=== PATIENT | male | born 1940 | race African-American/Black ===

== ENCOUNTER 2018-04-27 11:43 | Emergency (ER) | payer MEDICARE, BC ==
[2018-04-27] MEDS ORDERED: LISINOPRIL 5 MG TABLET PO ONE (12:12)
[2018-04-27] MEDS ORDERED: ASPIRIN 81 MG TABLET, CHEWABLE PO ONE (12:12)
--- NOTE | 2018-04-27 12:21 | ER Document Report ---
ED General - General Chief Complaint: Chest Pain Stated Complaint: CHEST PAIN Time Seen by Provider: 04/27/18 12:01 Mode of Arrival: Ambulatory Information source: Patient, [facility] Records Notes: 77-year-old male with coronary artery disease (with defibrillator), hypertension , hyperlipidemia, COPD presents via private vehicle from home with complaint of chest pain. Patient states that 3 hours prior to arrival he was watching TV when he experienced a sharp pain in the center of his chest. He states that it initially lasted approximately 15 minutes and then resolved. Patient is currently chest pain-free at this time. Patient complains of 3 weeks of a nonproductive cough, lightheadedness. Currently he says that he has not felt lightheaded for several days. Patient has not taken his blood pressure medications at this time. Patient denies headache, nausea, vomiting, diaphoresis, back pain, abdominal pain, dysuria, hematuria, constipation. Patient denies firing of his defibrillator. TRAVEL OUTSIDE OF THE [place] IN LAST 30 DAYS: No - HPI Onset: This morning Onset/Duration: Sudden, Gone Quality of pain: Sharp Associated symptoms: Chest pain, Nonproductive cough, Shortness of breath - Chronic. denies: Earache, Fever, Headache, Leg swelling, Nausea, Vomiting, Sweating, Weakness Exacerbated by: Denies Relieved by: Denies Similar symptoms previously: Yes Recently seen / treated by doctor: Yes - Related Data Allergies/Adverse Reactions: No Known Allergies Allergy (Verified 04/27/18 11:43) Past Medical History - General Information source: Patient, [facility] Records - Social History Smoking Status: Never Smoker Frequency of alcohol use: None Drug Abuse: None Lives with: Spouse/Significant other Family History: Reviewed & Not Pertinent Patient has suicidal ideation: No Patient has homicidal ideation: No - Past Medical History Cardiac Medical History: Reports: Hx Hypercholesterolemia, Hx Hypertension - on meds Denies: Hx Coronary Artery Disease, Hx Heart Attack Pulmonary Medical History: Denies: Hx Asthma, Hx Bronchitis, Hx COPD, Hx Pneumonia Neurological Medical History: Denies: Hx Cerebrovascular Accident, Hx Seizures Malignancy Medical History: Reports Hx Prostate Cancer GI Medical History: Denies: Hx Hepatitis, Hx Hiatal Hernia, Hx Ulcer Musculoskeletal Medical History: Denies Hx Arthritis, Reports Hx Gout Infectious Medical History: Denies: Hx Hepatitis Past Surgical History: Reports: Hx Genitourinary Surgery - Prostate surgery, Hx Orthopedic Surgery - Bilateral carpal tunnel release, ORIF right ankle 2015, Hx Testicular Surgery - prostate. Denies: Hx Open Heart Surgery, Hx Pacemaker - Immunizations Hx Diphtheria, Pertussis, Tetanus Vaccination: No Hx Pneumococcal Vaccination: 03/03/15 Review of Systems - Review of Systems Notes: REVIEW OF SYSTEMS: CONSTITUTIONAL : Denies fever, chills, or sweats. Denies recent illness. Denies weight loss, recent hospitalizations. EENT: Denies visual changes, eye pain. Denies sore throat, oral lesions, difficulty swallowing. CARDIOVASCULAR: Denies palpitations. Denies lower extremity edema. RESPIRATORY: Denies wheezing. GASTROINTESTINAL: Denies abdominal pain or distention. Denies nausea, vomiting , or diarrhea. Denies blood in vomitus, stools, or per rectum. Denies black, tarry stools. Denies constipation. GENITOURINARY: Denies difficulty urinating, painful urination, frequency, blood in urine, testicular pain or penile discharge. MUSCULOSKELETAL: Denies back or neck pain or stiffness. Denies joint pain or swelling. SKIN: Denies rash, lesions or sores. HEMATOLOGIC : Denies easy bruising or bleeding. LYMPHATIC: Denies swollen glands. NEUROLOGICAL: Denies confusion or altered mental status. Denies loss of consciousness. Denies dizziness or lightheadedness. Denies headache. Denies weakness or paralysis. Denies problems difficulty with ambulation, slurred speech. Denies sensory loss, numbness, or tingling. Denies seizures. PSYCHIATRIC: Denies anxiety or stress. Denies depression, suicidal ideation, or Physical Exam - Vital signs Vitals: Resp 18 04/27/18 11:44 - Notes Notes: PHYSICAL EXAMINATION: GENERAL: Well-appearing, well-nourished and in no acute distress. HEAD: Atraumatic, normocephalic. EYES: Pupils equal round and reactive to light, extraocular movements intact, sclera anicteric, conjunctiva are normal. ENT: Nares patent, oropharynx clear without exudates. Moist mucous membranes. NECK: Normal range of motion, supple without lymphadenopathy LUNGS: Breath sounds clear to auscultation bilaterally and equal. No wheezes rales or rhonchi. HEART: Regular rate and rhythm without murmurs ABDOMEN: Soft, nontender, nondistended abdomen. No guarding, no rebound. No masses appreciated. Musculoskeletal: Normal range of motion, no pitting or edema. No cyanosis. NEUROLOGICAL: Cranial nerves grossly intact. Normal speech, normal gait. Normal sensory, motor exams PSYCH: Normal mood, normal affect. SKIN: Warm, Dry, normal turgor, no rashes or lesions noted. Course - Re-evaluation Re-evalutation: Laboratory 04/27/18 04/27/18 04/27/18 12:10 12:10 12:10 WBC 7.0 RBC 4.80 Hgb 14.1 Hct 42.3 MCV 88 MCH 29.4 MCHC 33.4 RDW 14.8 H Plt Count 163 Seg Neutrophils % 72.9 Lymphocytes % 16.3 Monocytes % 8.9 Eosinophils % 1.2 Basophils % 0.7 Absolute Neutrophils 5.1 Absolute Lymphocytes 1.1 Absolute Monocytes 0.6 Absolute Eosinophils 0.1 Absolute Basophils 0.0 PT INR D-Dimer Sodium 141.4 Potassium 4.9 Chloride 107 Carbon Dioxide 24 Anion Gap 10 BUN 23 H Creatinine 1.34 H Est GFR ( Amer) > 60 Est GFR (Non-Af Amer) 52 L Glucose 99 Calcium 9.3 Total Bilirubin 0.5 Direct Bilirubin 0.3 Neonat Total Bilirubin Not Reportable Neonat Direct Bilirubin Not Reportable Neonat Indirect Bili Not Reportable AST 60 H ALT 63 Alkaline Phosphatase 170 H Creatine Kinase 188 H CK-MB (CK-2) 3.75 Troponin I 0.146 NT-Pro-B Natriuret Pep Total Protein 6.4 Albumin 3.9 04/27/18 04/27/18 04/27/18 12:10 12:10 15:30 WBC RBC Hgb Hct MCV MCH MCHC RDW Plt Count Seg Neutrophils % Lymphocytes % Monocytes % Eosinophils % Basophils % Absolute Neutrophils Absolute Lymphocytes Absolute Monocytes Absolute Eosinophils Absolute Basophils PT 13.0 INR 0.94 D-Dimer 1.79 H Sodium Potassium Chloride Carbon Dioxide Anion Gap BUN Creatinine Est GFR ( Amer) Est GFR (Non-Af Amer) Glucose Calcium Total Bilirubin Direct Bilirubin Neonat Total Bilirubin Neonat Direct Bilirubin Neonat Indirect Bili AST ALT Alkaline Phosphatase Creatine Kinase CK-MB (CK-2) Troponin I 0.145 NT-Pro-B Natriuret Pep 5170 H Total Protein Albumin Chest X-Ray 04/27/18 12:13 IMPRESSION: CARDIAC ENLARGEMENT WITHOUT FAILURE. Pacemaker defibrillator. Chest/Abdomen CTA 04/27/18 12:59 IMPRESSION: 1. Negative CT examination for pulmonary embolism. 2. Trace pericardial effusion. 3. Cardiomegaly and coronary artery disease. 04/27/18 12:20 77-year-old male with coronary artery disease, hypertension, COPD who has a defibrillator in place presents after experiencing a short time of sharp chest pain that has currently resolved without intervention. Upon arrival vitals were reviewed and patient is mildly tachycardic with a rate of 99. He is afebrile, not hypoxic. He does not appear toxic or dehydrated. He is in no acute distress. Patient has a normal physical exam. 04/27/18 12:22 04/27/18 13:31 Patient reevaluated. He states that he is still chest pain-free. Patient found to have an elevated troponin and d-dimer. Bedside cardiac ultrasound was performed no evidence of pericardial effusion, tamponade. No collapse of the right ventricle or right atrium. No bowing of the septum. Patient administer Lovenox, aspirin. 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 Patient will likely require interventional cardiology. 04/27/18 14:24 Contacted [facility] [place] again to inform him that the CTA was negative for pulmonary embolism. 04/27/18 15:14 Patient reevaluated and again remains chest pain-free. Repeat EKG still shows no evidence of ST elevation. Repeat troponin pending. Patient was accepted to [facility] by Dr. Kassandra Vivas. 04/27/18 17:00 Repeat troponin 0 0.146 up from 0.145. Patient remains chest pain-free. Estimated time of transport will be 1929. 04/27/18 17:01 04/27/18 17:06 - Vital Signs Vital signs: Temp Pulse Resp BP Pulse Ox 98.3 F 15 134/104 H 99 04/27/18 12:28 04/27/18 16:00 04/27/18 16:00 04/27/18 16:00 - Laboratory Result Diagrams: 04/27/18 12:10 04/27/18 12:10 Laboratory results interpreted by me: 04/27/18 04/27/18 04/27/18 12:10 12:10 12:10 RDW 14.8 H D-Dimer 1.79 H BUN 23 H Creatinine 1.34 H Est GFR (Non-Af Amer) 52 L AST 60 H Alkaline Phosphatase 170 H Creatine Kinase 188 H NT-Pro-B Natriuret Pep 04/27/18 12:10 RDW D-Dimer BUN Creatinine Est GFR (Non-Af Amer) AST Alkaline Phosphatase Creatine Kinase NT-Pro-B Natriuret Pep 5170 H - Diagnostic Test Radiology reviewed: Image reviewed, Reports reviewed - EKG Interpretation by Me EKG shows normal: Sinus rhythm Rate: Normal Rhythm: NSR [place]/QRS: LAHB/LAFB When compared to previous EKG there are: No significant change Procedures - Ultrasound/Bedside Ultrasound/Bedside Time completed: 12:00 - Bedside cardiac ultrasound performed to assess for pericardial effusion which was absent. No evidence of tamponade. No right ventricular or right atrial collapse. Images attached to chart Critical Care Note - Critical Care Note Total time excluding time spent on procedures (mins): 40 - Minutes of critical care time spent in direct contact evaluating and reevaluating the patient, treating symptoms, reviewing labs and studies and speaking with family and consultants excluding any procedures Discharge - Discharge Clinical Impression: NSTEMI (non-ST elevated myocardial infarction), Elevated brain natriuretic peptide (BNP) level, Elevated troponin, Elevated d-dimer CHF (congestive heart failure) Qualifiers: Heart failure type: unspecified Heart failure chronicity: unspecified Qualified Code(s): I50.9 - Heart failure, unspecified Coronary artery disease Qualifiers: Coronary Disease-Associated Artery/Lesion type: unspecified vessel or lesion type [place] vs. transplanted heart: [place] heart Associated angina: without angina Qualified Code(s): I25.10 - Atherosclerotic heart disease of [place] coronary artery without angina pectoris Hypertension Qualifiers: Hypertension type: unspecified Qualified Code(s): I10 - Essential (primary) hypertension Condition: Good Disposition: [facility] Forms: Elevated Blood Pressure Referrals: LOCALMD,NO [NO LOCAL MD] - Follow up as needed
[2018-04-27 12:23] LABS: ABSOLUTE EOSINOPHILS # (AUTO) 0.1 10^3/uL (0.0-0.6); ABSOLUTE LYMPHOCYTES (AUTO) 1.1 10^3/uL (0.5-4.7); ABSOLUTE MONOCYTES (AUTO) 0.6 10^3/uL (0.1-1.4); ABSOLUTE NEUT (AUTO) 5.1 10^3/uL (1.7-8.2); BASOPHILS % (AUTO) 0.7 % (0-2); EOSINOPHILS % (AUTO) 1.2 % (0-6); HEMATOCRIT 42.3 % (37.9-51.0); HEMOGLOBIN 14.1 g/dL (13.5-17.0); LYMPHOCYTES % (AUTO) 16.3 % (13-45); MEAN CORPUSCULAR HEMOGLOBIN 29.4 pg (27.0-33.4); MEAN CORPUSCULAR HGB CONC 33.4 g/dL (32.0-36.0); MEAN CORPUSCULAR VOLUME 88 fl (80-97); MONOCYTES % (AUTO) 8.9 % (3-13); PLATELET COUNT 163 10^3/uL (150-450); RED CELL DISTRIBUTION WIDTH 14.8 % (11.5-14.0); SEGMENTED NEUTROPHILS % (AUTO) 72.9 % (42-78); TOTAL CELLS COUNTED % (AUTO) 100 %
[2018-04-27 12:25] LABS: INTERNATIONAL RATION (INR) 0.94
[2018-04-27 12:28] LABS: D-DIMER 1.79 ug/mL (0.00-0.50)
[2018-04-27 12:38] LABS: ALANINE AMINOTRANSFERASE 63 U/L (21-72); ALBUMIN 3.9 g/dL (3.5-5.0); ALKALINE PHOSPHATASE 170 U/L (38-126); ANION GAP 10 (5-19); ASPARTATE AMINO TRANSFERASE 60 U/L (17-59); BILIRUBIN,DIRECT 0.3 mg/dL (0.0-0.4); BILIRUBIN,TOTAL 0.5 mg/dL (0.2-1.3); BLOOD UREA NITROGEN 23 mg/dL (7-20); CALCIUM 9.3 mg/dL (8.4-10.2); CARBON DIOXIDE 24 mmol/L (22-30); CHLORIDE 107 mmol/L (98-107); CREATINE KINASE 188 U/L (55-170); GLUCOSE 99 mg/dL (75-110); POTASSIUM 4.9 mmol/L (3.6-5.0); SODIUM 141.4 mmol/L (137-145); TOTAL PROTEIN 6.4 g/dL (6.3-8.2)
[2018-04-27 12:50] LABS: CREATINE KINASE MB 3.75 ng/mL (<4.55)
[2018-04-27 12:54] LABS: TROPONIN I 0.146 ng/mL
[2018-04-27] MEDS ORDERED: NORMAL SALINE 500 ML IV ONE (13:00)
[2018-04-27] MEDS ORDERED: ENOXAPARIN SODIUM INJ 100 MG/1 ML DISP.SYRIN SUBCUT SCH (13:00)
--- NOTE | 2018-04-27 13:02 | RADIOLOGY REPORT (SQ) ---
EXAM DESCRIPTION: CHEST 2 VIEWS COMPLETED DATE/TIME: 04/27/2018 12:40 pm REASON FOR STUDY: chest pain COMPARISON: 06/25/2015 NUMBER OF VIEWS: Two view. TECHNIQUE: Frontal and lateral radiographic views of the chest acquired. LIMITATIONS: None. FINDINGS: LUNGS AND PLEURA: No opacities, masses or pneumothorax. No pleural effusion. MEDIASTINUM AND HILAR STRUCTURES: No masses. No contour abnormalities. HEART AND VASCULAR STRUCTURES: Heart enlarged without failure. Aorta normal for age. BONES: No acute findings. HARDWARE: Pacemaker defibrillator. OTHER: No other significant finding. IMPRESSION: CARDIAC ENLARGEMENT WITHOUT FAILURE. Pacemaker defibrillator. TECHNICAL DOCUMENTATION: JOB ID: [id number] [employer]- All Rights Reserved Reading location - IP/workstation name: [email or web address]
--- NOTE | 2018-04-27 14:02 | RADIOLOGY REPORT (SQ) ---
EXAM DESCRIPTION: CTA CHEST COMPLETED DATE/TIME: 04/27/2018 1:39 pm REASON FOR STUDY: elevated dimer COMPARISON: None. TECHNIQUE: CT scan of the chest performed using helical scanning technique with dynamic intravenous contrast injection. Images reviewed with lung, soft tissue and bone windows. Reconstructed coronal and sagittal MPR images reviewed. Additional 3 dimensional post-processing performed to develop Maximal Intensity Projection images ([place] P). All images stored on PACS. All CT scanners at this facility use dose modulation, iterative reconstruction, and/or weight based d osing when appropriate to reduce radiation dose to as low as reasonably achievable (ALARA). [facility]: Dose Right [facility]: CareDose [facility]: Dose Right [facility]: Teradose 4D [facility]: [employer] CONTRAST TYPE AND DOSE: Contrast not documented. Contrast bolus optimized for the pulmonary arteries. Not diagnostic for the aorta. RENAL FUNCTION: GFR > 60. RADIATION DOSE: CT Rad equipment meets quality standard of care and radiation dose reduction techniq ues were employed. CTDIvol: 15.7 - 26.4 mGy. DLP: 636 mGy-cm. . LIMITATIONS: None. FINDINGS: LUNGS AND PLEURA: No masses, infiltrates, or pneumothorax. No pleural effusions or pleura l calcifications. AORTA AND GREAT VESSELS: No aneurysm. Contrast bolus not optimized for the aorta. HEART: Trace pericardial effusion. Left coronary artery calcifications or stents. Cardiomegaly. PULMONARY ARTERIES: No emboli visualized in the main pulmonary arteries or the segmental branches. HILAR AND MEDIASTINAL STRUCTURES: No identified masses or abnormal nodes. HARDWARE: None in the chest. UPPER ABDOMEN: No significant findings. Limited exam. THYROID AND OTHER SOFT TISSUES: No masses. No adenopathy. BONES: No acute or significant finding. 3D MIPS: Confirm above findings. OTHER: No other significant finding. IMPRESSION: 1. Negative CT examination for pulmonary embolism. 2. Trace pericardial effusion. 3. Cardiomegaly and coronary artery disease. COMMENT: Quality ID # [id number]: Final reports with documentation of one or more dose reduction techniques (e.g., Automated exposure control, adjustment of the mA and/or kV according to patient size, use of iterative reconstruction technique) TECHNICAL DOCUMENTATION: JOB ID: [id number] [employer]- All Rights Reserved Reading location - IP/workstation name: [email or web address]
[2018-04-27 17:29] LABS: APPEARANCE,URINE CLEAR; BILIRUBIN,URINE NEGATIVE (NEGATIVE); COLOR,URINE STRAW; GLUCOSE, URINE NEGATIVE (NEGATIVE); KETONES,URINE NEGATIVE (NEGATIVE); LEUKOCYTE ESTERASE,URINE NEGATIVE (NEGATIVE); NITRITE,URINE NEGATIVE (NEGATIVE); PROTEIN,URINE NEGATIVE (NEGATIVE); URINE SPECIFIC GRAVITY 1.043; UROBILINOGEN,URINE NEGATIVE mg/dL (<2.0)
[2018-04-27 20:23] VITALS: BP 113/79
--- NOTE | 2018-04-28 10:49 | EKG REPORT ---
SEVERITY:- ABNORMAL ECG - SINUS RHYTHM LEFT ANTERIOR FASCICULAR BLOCK BORDERLINE R WAVE PROGRESSION, ANTERIOR LEADS NONSPECIFIC T ABNORMALITIES, LATERAL LEADS BORDERLINE PROLONGED QT INTERVAL : Confirmed by: Ryan Garcia 28-Apr-2018 10:48:45
--- NOTE | 2018-04-28 10:50 | EKG REPORT ---
SEVERITY:- ABNORMAL ECG - SINUS RHYTHM LEFT ANTERIOR FASCICULAR BLOCK BORDERLINE R WAVE PROGRESSION, ANTERIOR LEADS NONSPECIFIC T ABNORMALITIES, LATERAL LEADS BORDERLINE PROLONGED QT INTERVAL APC : Confirmed by: Ryan Garcia 28-Apr-2018 10:49:27
== END 2018-04-27 20:45 | disposition short-term general hospital (02) ==
LOC: ER 11:43
DX: I11.0 Hypertensive heart disease with heart failure (principal); I50.9 Heart failure, unspecified; I25.10 Atherosclerotic heart disease of native coronary artery without angina pectoris; Z95.810 Presence of automatic (implantable) cardiac defibrillator; I21.4 Non-ST elevation (NSTEMI) myocardial infarction; I44.4 Left anterior fascicular block; R07.9 Chest pain, unspecified; I10 Essential (primary) hypertension; R05 Cough; R06.02 Shortness of breath; R79.89 Other specified abnormal findings of blood chemistry; R79.1 Abnormal coagulation profile; J44.9 Chronic obstructive pulmonary disease, unspecified
CPT/HCPCS: 93005; 99291; 96372; 96360; 36415; 82553; 82550; 85025; 85610; 80053; 81001; 84484; 85379; 83880; 71046; 71275; 93010; A9270 ×2; J7040; J1650